=== PATIENT | female | born 1950 | race Caucasian/White ===

== ENCOUNTER → 2020-03-03 14:09 | Outpatient (CLI) | payer SELFPAY ==
[2020-03-04 07:47] LABS: SARS-COV-2 TOTAL ABS Nonreactive (Nonreactive)
== END ==
PROVIDERS: PCP Family Medicine; Referring Provider Family Medicine; Visit Provider Family Medicine
DX: Z03.818 Encounter for observation for suspected exposure to other biological agents ruled out (principal)
CPT/HCPCS: 86769; G2023

== ENCOUNTER → 2024-07-11 | Outpatient (CLI) | payer MEDICARE, SELFPAY ==
--- NOTE | 2024-07-11 14:45 | CT_ITS ---
STUDY: CT ABDOMEN AND PELVIS WITHOUT CONTRAST REASON FOR EXAM: Female, 74 years old. Hernia RADIATION DOSAGE (If Supplied By Facility): CTDIvol = ( 8.08 ) mGy, DLP = ( 379.27 ) mGycm TECHNIQUE: Transaxial images were obtained from the dome of the diaphragm to the symphysis pubis without oral contrast, and without intravenous contrast. Sagittal and coronal images were reconstructed. Individualized dose optimization techniques were used for this CT. COMPARISON: None. FINDINGS: Minimal increased linear markings at the lung bases suggest some mild scarring. No significant coronary artery calcification is seen. The visualized portions of the heart are within normal limits. Normal liver. Normal gallbladder and extrahepatic biliary system. Normal spleen. Normal pancreas. Normal bilateral adrenal glands. Normal right kidney. Normal left kidney. Normal visualized stomach. Normal small intestine. There are scattered colonic diverticula consistent with diverticulosis. The appendix is visualized and appears normal. There is scattered atherosclerotic calcification of the abdominal aorta, without a demonstrated aneurysm. Normal inferior vena cava. Normal retroperitoneum. Normal urinary bladder. Small benign-appearing bilateral inguinal lymph nodes. Moderate sized right inguinal hernia containing nondilated bowel loop. This extends superiorly into the right anterior lateral abdominal wall. There are degenerative changes of the visualized lumbar spine. Levoscoliosis. CT/Abdomen/Pelvis without Cont IMPRESSION: Moderate-sized left inguinal hernia extending to the left lateral abdominal wall containing nondilated small bowel loop. Electronically Signed: Shant Gaines MD at 15:08 EDT ,
== END | disposition home or self-care (01) ==
PROVIDERS: PCP Family Medicine; Referring Provider Surgery; Visit Provider Surgery
DX: K46.9 Unspecified abdominal hernia without obstruction or gangrene (principal)
CPT/HCPCS: 74176

== ENCOUNTER 2024-08-29 08:56 | Day surgery (SDC) | payer MEDICARE, SELFPAY ==
--- NOTE | 2024-08-29 | COLBX_PTH ---
PATIENT: AGUSTO CARRILLO LOC: EN U#:[id number] AGE/SX: 74/F ROOM: RE08/29/[address]: Dr. Katherine Garcia MD : 1950 BED: DIS: 08/29/2024 SPEC #: [id number] RECD: 08/29/24 13:40 STATUS: GEN REAndrade #: [id number] NIKIA: 08/29/24 00:[address]: Katherine Garcia DEPT: SURGICAL PATHOLOGY RECD BY: Rosendo Sneed ENTERED: 08/29/24 13:41 SP TYPE: COLON BX OTHR DR: Ghada Mosley, ACCOUNTS MANAGER-Bill Tissues: Ascending colon Procedures: Surgery Specimen Level IV HEADER OPERATION: Colonoscopy and polypectomy PRE-OP DIAGNOSIS: Constipation TISSUE SUBMITTED: Ascending colon polyp MICROSCOPIC DIAGNOSIS Ascending colon polyp, biopsy: Hyperplastic polyp. AM.mr 08/31/2024 MICROSCOPIC DESCRIPTION Slides are reviewed. GROSS DESCRIPTION Received in fixative is one container labeled with the patient's name and designated Ascending colon polyp. The specimen consists of one irregular fragment of light jessica soft tissue that measures 0.7 x 0.2 x 0.1 cm. The specimen is totally submitted in one cassette. 08/29/2024 TC:5 CPT:95615
--- NOTE | 2024-08-29 09:12 | H&P.OPEN ---
HPI - General General Date of Service: 08/29/24 HPI Narrative AGUSTO CARRILLO, is a 74 F who presents for colonoscopy due to constipation. Patient denies any family history of colon cancer. Patient states she does go daily occasionally does have to take the smooth move sometimes she does not go a lot. Patient's hernia repair was a left inguinal hernia pair with mesh by Dr. Monzon and that is recurrent according to recent CAT scan. office visit 07/11/24 HPI: 74-year-old female presents due to left-sided abdominal hernia as well as constipation/requesting colonoscopy. Patient never had previous colonoscopy. Denies any family history of colon cancer. Patient states she does have bowel movements daily but states they are small and not always hard. Patient does occasionally take the smooth move tea to help have bowel movements. Patient denies abdominal pain but does states she can have soreness on the left lower abdomen for about the last few weeks occasionally. Patient states when she did have that discomfort she did notice some small right bright red blood with wiping but she does have known hemorrhoids. Patient did have sounds like to right inguinal hernia repair tears in 2004 and 2006 and also in 2017 Dr. Monzon did a left lower quadrant surgery possibly inguinal hernia repair?currently do not have notes or any recent CAT scan. Patient states she noticed a bulge not too long after the surgery was completed in 2017, more recently has been more sore. [facility] Medical History Wears partial dentures Wears glasses Heartburn Non-smoker Blood in stool, melvin Hemorrhoids Constipation Hernia Home Medications ?Medication ?Instructions ?Recorded ?Last Taken ?Type multivitamin (Daily Multi-Vitamin 1 tab PO QAM 07/11/24 Unknown History tablet) antiarthritic combination no.2 900 900 mg PO DAILY 08/28/24 Unknown History mg tablet (glucosamine-chondroitin) ascorbic acid (vitamin C) 1,000 mg 1,000 mg PO DAILY 08/28/24 Unknown History tablet,extended release (C Complex) calcium carbonate (Calcium 600) 600 mg PO DAILY 08/28/24 Unknown History cholecalciferol (vitamin D3) 25 25 mcg PO DAILY 08/28/24 Unknown History mcg (1,000 unit) capsule (Vitamin D3) lecithin 1,200 mg capsule 1,200 mg PO DAILY 08/28/24 Unknown History vitamin B complex (Balanced B-50 1 tab PO DAILY 08/28/24 Unknown History tablet) Allergy/AdvReac Type Severity Reaction Status Date / Time No Known Allergies Allergy Verified 08/29/24 09:11 Surgical History Hx of tonsillectomy H/O dilation and curettage H/O hernia repair Social History Smoking Status: Never smoker alcohol intake: never substance use type: does not use Past Medical/Surgical History Planned Operation Planned Operative Procedure(s): COLONOSCOPY Previous Hospitalizations/Surgeries HX Hospitalizations: No Any Problems With Anesthesia: No You/Your Family Experience Fever (Hyperthermia) With Anes: No Cholinesterase deficiency: No Cardiovascular Hx Hypertension: No Respiratory Hx Sleep Apnea: No Hx Respiratory Tract Infection/Cold (presently): No Do You Snore Loudly (louder than talking or can be heard): No Do You Often Feel Tired/ Fatigued/ Sleepy Dring Daytime?: No Has Anyone Observed You Stop Breathing During Sleep?: No Result (for STOP score): Negative Smoking Status: Never smoker Neurological Does patient have nerve stimulator: No Allergies No Known Allergies Allergy (Verified 08/29/24 09:11) Physical Exam Const alert, oriented x3 and no apparent distress HEENT normocephalic and head/scalp atraumatic Resp normal respiratory effort Cardio regular rate GI soft to palpation and non-tender; Negative for non-distended Palpation: hernia other (Incisional left lower quadrant-reducible); Negative for guarding Extremity no clubbing, cyanosis or edema Skin no rashes or lesions noted Neuro CN's II-XII intact bilaterally Psych mental status grossly normal Assessment & Plan Assessment/Plan (1) Constipation: (2) Hernia: PLAN: Recurrent left inguinal hernia?the bowel does come up superiorly after it herniates out?does reduce. Surgery Risks - Colonoscopy I discussed with the patient the risks of the procedure: Yes Risks Include but are not Limited To: Risks include but are not limited to: Bleeding, perforation requiring further surgery, inability to complete colonoscopy requiring barium enema.
[2024-08-29 09:13] VITALS: BP 146/66; PULSE 89; RESP 16; TEMP 36.5; O2SAT 97; BMI 25.9
--- NOTE | 2024-08-29 09:15 | PRE.ANES_ITS ---
ASA Classification* ASA Classification ASA Classification: 2 Assessment & Plan Anesthesia* Anesthesia Assessment Anesthesia Assessment: Discussed sedation and/or anesthesia options, risks, benefits, and alternatives with patient/parents/legal guardian/POA. Questions invited. The patient/parents/legal guardian/POA seems to understand and agrees to proceed with anesthesia plan. Reviewed the physical assessment, medical history, allergy history and patient home medications list prior to surgery/procedure/anesthetic and documented any changes. Performed airway and anesthesia risk assessments. Anesthesia Type Anesthesia Type: MAC Anesthesia Focused Assessment* Airway Assessment Mouth opens: >3 cm Mallampati Score: II Focused Labs Anesthesia Preop lab: CBC CHEMISTRY COAG Pre-Assessment Diagnosis/Proposed Procedure Planned Operative Procedure(s): COLONOSCOPY Anesthesia History Anesthesia History - labor service representative: Anesthesia History - labor service representative Hx Hospitalization No 08/29/24 09:13 Any Problems With Anesthesia No 08/29/24 09:13 Cholinesterase deficiency No 08/29/24 09:13 You/Your Family Experience No 08/29/24 09:13 fever (hyperthermia) with Relationship Recent Exposure to Contagious Disease Does patient have nerve No 08/29/24 09:13 stimulator Patient instructed to have device shut off --Does patient have Pacemaker or ICD? When Was Last Pacemaker Check QUESTION #4 FULL TEXT: You/Your Family Experience fever (hyperthermia) with Anesthesia Last Oral Intake Last Oral intake: Last Oral Intake NPO since Meds taken in AM with sips of water? Meds patient instructed to take am of surgery PONV PONV - labor service representative: PONV - labor service representative Female Yes 08/28/24 10:24 HX of Motion Sickness No 08/28/24 10:24 HX of N/V After Surgery No 08/28/24 10:24 Non-Smoker Yes 08/28/24 10:24 Duration of Surgery greater No 08/28/24 10:24 than 60 minutes Number of Risk Factors 2 08/28/24 10:24 PONV Score Moderate Risk 08/28/24 10:24 Height & Weight Height & Weight: Anesthesia: Height & Weight Height 5 ft 1 in 07/11/24 13:50 Respiratory Assessment Respiratory Assessment - labor service representative: Respiratory Tract Infection Hx - labor service representative Hx Respiratory Tract Infection No 08/29/24 09:13 STOP Sleep Apnea STOP Sleep Apnea - labor service representative: STOP Sleep Apnea - labor service representative Hx Hypertension No 08/29/24 09:13 Hx Sleep Apnea No 08/29/24 09:13 CPAP BIPAP Do you snore loudly (louder No 08/29/24 09:13 than talking or can be heard Do you often feel tired/ No 08/29/24 09:13 fatigued/ sleepy during daytime? Has anyone observed you stop No 08/29/24 09:13 breathing during sleep? STOP Results Negative 08/29/24 09:13 QUESTION #5 FULL TEXT : Do you snore loudly (louder than talking or can be heard through closed doors)? Tobacco Use History Tobacco Use History - labor service representative: Tobacco Use History - labor service representative Tobacco Use Smoking Status Never smoker 08/29/24 09:13 Hx Tobacco Use No 08/28/24 10:24 Years Smoking Packs Smoked per Day Smoking Cessation Date was within the last 15 years Hx Smoking Cessation Date Hx Smoking Cessation Counseling Hematologic Medial History Hematologic Hx - labor service representative: Hematologic Medical Hx - territory sales manager medical Hx of Blood Transfusion No 08/28/24 10:24 Hx of Transfusion in last 3 No 08/28/24 10:24 Months Date of Last Transfusion (if within last 3 months) Ever experience any problems No 08/28/24 10:24 with transfusion(s)? Specify any problems Hx of Preganancy in last 3 No 08/28/24 10:24 Months Nurse Filling Out Transfusion [email or web address] 08/28/24 10:24 & Questions: Date: 08/28/24 08/28/24 10:24 Time: 10:31 08/28/24 10:24 Patient unable to answer at this time (ie. confused, unrespo /Reproduction History /Reproductive History - labor service representative: /Reproductive Hx- labor service representative Hx Now Gestational Age (in weeks): EDC: Hx Hx Para Hx Section SAB PFSH Medical History Wears partial dentures Wears glasses Heartburn Non-smoker Blood in stool, melvin Hemorrhoids Constipation Hernia Home Medications ?Medication ?Instructions ?Recorded ?Last Taken ?Type multivitamin (Daily Multi-Vitamin 1 tab PO QAM 07/11/24 Unknown History tablet) antiarthritic combination no.2 900 900 mg PO DAILY 08/28/24 Unknown History mg tablet (glucosamine-chondroitin) ascorbic acid (vitamin C) 1,000 mg 1,000 mg PO DAILY 08/28/24 Unknown History tablet,extended release (C Complex) calcium carbonate (Calcium 600) 600 mg PO DAILY 08/28/24 Unknown History cholecalciferol (vitamin D3) 25 25 mcg PO DAILY 08/28/24 Unknown History mcg (1,000 unit) capsule (Vitamin D3) lecithin 1,200 mg capsule 1,200 mg PO DAILY 08/28/24 Unknown History vitamin B complex (Balanced B-50 1 tab PO DAILY 08/28/24 Unknown History tablet) Allergy/AdvReac Type Severity Reaction Status Date / Time No Known Allergies Allergy Verified 08/29/24 09:11 Surgical History Hx of tonsillectomy H/O dilation and curettage H/O hernia repair Social History Smoking Status: Never smoker alcohol intake: never substance use type: does not use Review of Systems (Anesthesia) ROS Narrative System reviewed and no additional complaints, except as documented.
[2024-08-29 10:51] VITALS: BP 146/66; BP 91/51; PULSE 68; RESP 14; TEMP 36.2; O2SAT 92
--- NOTE | 2024-08-29 10:53 | OP.COLON_ITS ---
Patient Name: Amelia Nguyen Procedure Date: 08/29/2024 10:20 AM Date of : 1950 Age: 74 Procedure: Colonoscopy Indications: Constipation Providers: Katherine Garcia MD Referring MD: Minnie Marques Medicines: Monitored Anesthesia Care Patient Profile: This is a 74 year old female. Last Colonoscopy: none. The patient's first colonoscopy is today. Complications: No immediate complications. Procedure: Pre-Anesthesia Assessment: - Prior to the procedure, a History and Physical was performed, and patient medications and allergies were reviewed. The patient's tolerance of previous anesthesia was also reviewed. The risks and benefits of the procedure and the sedation options and risks were discussed with the patient. All questions were answered, and informed consent was obtained. Prior Anticoagulants: The patient has taken no anticoagulant or antiplatelet agents. ASA Grade Assessment: Per anesthesia. After reviewing the risks and benefits, the patient was deemed in satisfactory condition to undergo the procedure. After I obtained informed consent, the scope was passed under direct vision. Throughout the procedure, the patient's blood pressure, pulse, and oxygen saturations were monitored continuously. The colonoscope was introduced through the anus and advanced to the cecum, identified by the appendiceal orifice, ileocecal valve and palpation. The colonoscopy was performed without difficulty. The patient tolerated the procedure well. The quality of the bowel preparation was good. Scope In: 10:27:41 AM Scope Withdrawal Time 0 hours 10 minutes 5 seconds Scope Out: 10:46:53 AM Total Procedure Duration Time 0 hours 19 minutes 12 seconds Findings: The perianal and digital rectal examinations were normal. A few small-mouthed diverticula were found in the sigmoid colon. A less than 5 mm polyp was found in the ascending colon. The polyp was sessile. The polyp was removed with a cold biopsy forceps. Resection and retrieval were complete. The exam was otherwise without abnormality on direct and retroflexion views. Impression: - Diverticulosis in the sigmoid colon. - One less than 5 mm polyp in the ascending colon, removed with a cold biopsy forceps. Resected and retrieved. - The examination was otherwise normal on direct and retroflexion views. Recommendation: - Discharge patient to home. - Resume previous diet. - Continue present medications. - Await pathology results. - Repeat colonoscopy likely not needed due to age. Procedure Code(s): --- Professional --- 53251, Colonoscopy, flexible; with biopsy, single or multiple Diagnosis Code(s): --- Professional --- D12.2, Benign neoplasm of ascending colon K59.00, Constipation, unspecified K57.30, Diverticulosis of large intestine without perforation or abscess without bleeding CPT copyright 2021 [employer]. All rights reserved. The codes documented in this report are preliminary and upon medical billing coder review may be revised to meet current compliance requirements. MD Katherine Grubbs MD 08/29/2024 10:53:18 AM This report has been signed electronically. Number of Addenda: 0 Note Initiated On: 08/29/2024 10:20 AM
--- NOTE | 2024-08-29 10:53 | OP.CCLET_ITS ---
08/29/2024 Minnie Marques Re : Colonoscopy procedure for Amelia Nguyen Dear Melany This procedure was performed on Thursday, August 29, 2024. My impressions and recommendations are as follows: Impressions : - Diverticulosis in the sigmoid colon. - One less than 5 mm polyp in the ascending colon, removed with a cold biopsy forceps. Resected and retrieved. - The examination was otherwise normal on direct and retroflexion views. Recommendations : - Discharge patient to home. - Resume previous diet. - Continue present medications. - Await pathology results. - Repeat colonoscopy likely not needed due to age. My findings are described in the full procedure note, which is enclosed. If I can be of further assistance, please feel free to contact me at Doctor phone number(s): , Work: . Sincerely, MD Katherine Grubbs MD 08/29/2024 10:53:18 AM This report has been signed electronically.
--- NOTE | 2024-08-29 10:54 | PCM.POST.ANE ---
Anesthesia: Postop Eval I Current Vital Signs Temperature: 97.2 F Pulse Rate: 70 Blood Pressure: 91/51 Respiratory Rate: 16 Pulse Ox: 96 Oxygen Delivery Method: Room Air Assessment Airway patent: Yes Spontaneous unlabored respirations: Yes Mental status: Asleep nausea: No Vomiting: No Anesthesia Complication: No Fluid Hydration Crystalloid volume administer (ml): 40 Total IV fluid infused: 40 Progress Note Anesthesia document: Postop Eval 1 completed: Yes
[2024-08-29 10:55] VITALS: BP 146/66; BP 84/51; BP 91/51; PULSE 67; PULSE 70; RESP 14; RESP 16; TEMP 36.2; O2SAT 94; O2SAT 96
[2024-08-29 11:00] VITALS: BP 146/66; BP 83/50; PULSE 67; RESP 16; O2SAT 93
[2024-08-29 11:16] VITALS: BP 146/66; BP 92/54; PULSE 64; RESP 16; TEMP 36.7; O2SAT 97
--- NOTE | 2024-08-29 11:27 | PCM.POSTANE2 ---
Anesthesia Postop Eval I Sum Postop Eval Completion status Anesthesia document: Postop Eval 1 completed: Yes Anesthesia Postop Eval I Summary Anesthesia Postop Eval I Summary: Anesthesia Postop Eval I: Assessment Summary Airway patent Yes 08/29/24 10:55 [email or web address] Spontaneous unlabored Yes 08/29/24 10:55 [email or web address] respirations Mental status Asleep 08/29/24 10:55 [email or web address] nausea No 08/29/24 10:55 [email or web address] Vomiting No 08/29/24 10:55 [email or web address] Anesthesia Postop Eval I: Fluid Summary Crystalloid volume administer 40 08/29/24 10:55 [email or web address] (ml) Colloids volume administered ( ml) Blood Product volume administered (ml) Total IV fluid infused 40 08/29/24 10:55 [email or web address] Anesthesia Postop Eval I: Summary Notes Anesthesia Complication No 08/29/24 10:55 [email or web address] Anesthesia Complication Comment: Post-operative progress note Anesthesia: Postop Eval II Evaluation Mental status: Awake Pain Level: 0 nausea: No Vomiting: No
[2024-08-29 12:15] VITALS: BP 146/66
== END 2024-08-29 12:15 | disposition home or self-care (01) ==
LOC: EN 08:56 → AC 08:57
PROVIDERS: PCP Nurse Practitioner Family; Referring Provider Nurse Practitioner Family; Visit Provider Surgery
PROC: 0DJD8ZZ Inspection of Lower Intestinal Tract, Via Natural or Artificial Opening Endoscopic (ICD-10-PCS; CPT 45378; principal; 2024-08-29 09:55)
DX: K63.5 Polyp of colon (principal); K57.30 Diverticulosis of large intestine without perforation or abscess without bleeding; K40.90 Unilateral inguinal hernia, without obstruction or gangrene, not specified as recurrent; Z87.19 Personal history of other diseases of the digestive system; K64.9 Unspecified hemorrhoids
CPT/HCPCS: 45380; 88305; A4216; J2405